=== PATIENT | female | born 1990 | race Caucasian/White ===

== ENCOUNTER 2025-02-18 09:45 | Outpatient (RCR) | payer OTHER, SELFPAY ==
[2025-01-30 11:21] VITALS: BMI 24.7
[2025-01-30 11:47] VITALS: BP 90/58; PULSE 68; TEMP 36.6
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
--- NOTE | 2025-01-30 15:35 | PC.ADMIT ---
Patient is a 34 year old female who was referred to [facility] by her therapist d/t increased sxs of depression, anxiety with panic attacks, and PTSD sxs. Patient identified stressors including work. 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 Patient also reports stresses including her children and their father and the state of her home. Patient reports history of tongue cancer with removal of a portion of her and radiation treatments. Reports chronic tongue pain as a result. Patient stated she vapes Marijuana occasionally for the pain. Reports low motivation to do things. She is currently taking a leave of absence from work to work on her mental health. Patient identified supports as being her partner, a couple of friends and mom. Patient is alert and oriented x4. She is calm and cooperative. She presented with depressed mood and affect. She denied SI. She was given a copy of her safety plan if needed. Medications updated with patient and patient's pharmacy. She reports taking medications as prescribed. Medication education provided.
--- NOTE | 2025-02-06 19:10 | HO.PHPPROGNO ---
Subjective Subjective Date of Service: 02/06/25 Reason For Visit: MDD,PTSD,ADHD Interim History: Patient seen for follow-up. Anxiety has been up and down She has been feeling under the weather with head cold symptoms, daughter currently is sick Mood is okay, energy lower. Denies any SI. SLeep, appetite intact. her back has been stiff achy, sitting for long periods not helping . Abilify 1 mg qd so far tolerated, agreeable to inrease to whole tablet. Medication Compliance: Yes Side effects from medications: No Attending Groups: Yes Review of Systems Acute medical concerns: No Mental Status Exam Mental Status Exam Narrative: Alert, oriented, in no acute distress. Calm, cooperative. Mood depressed, affect subdued. Speech normal. Thought process linear, coherent, more goal-directed. Thought content related to stressors, future-oriented, denies any helplessness, hopelessness or SI.? No aggressive ideation or HI. No paranoia or delusional content elicited. No evidence of psychosis. Insight and judgment fair-good. Diagnostics Vital Signs (24Hr): BMI result Body Mass Index 24.7 Assessment & Plan Assessment & Plan (1) MDD (major depressive disorder), recurrent severe, without psychosis: Status: Acute Code(s): F33.2 - Major depressive disorder, recurrent severe without psychotic features (2) PTSD (post-traumatic stress disorder): Status: Acute Code(s): F43.10 - Post-traumatic stress disorder, unspecified (3) KYLE (generalized anxiety disorder): Status: Acute Code(s): F41.1 - Generalized anxiety disorder (4) ADHD (attention deficit hyperactivity disorder): Status: Acute Code(s): F90.9 - Attention-deficit hyperactivity disorder, unspecified type Plan cotninue PHP increase Abilify to 2 mg qd continue regular medications? Refills sent to pharmacy Will defer further medication management to outpatient provider *Safety plan reviewed *Discharge diagnoses, treatment course, discharge plan have been reviewed with patient (including medication regime, medication management, potential side effects) as well as treatment rationale were also revisited *Discharge paperwork signed and given to patient, copy sent for scanning to chart Patient educated on: diagnosis and medication risk/benefits Informed Consent: understands Reason for contiued partial hosp. stay Substantial Risk for: med/psych decompensation Certification I certify that partial hospital treatment is medically necessary due to the symptoms and problems resulting from the patient's mental illness and the failure to treat the patient at the partial hospital level of care would likely result in the patient requiring inpatient psychiatric care which could not be prevented at a less intensive level of care. Total time managing care of this patient today __30__ minutes. Discharge Plan Discharge Attending provider: Jacinta Galindo Medications: New aripiprazole 2 mg tablet 2 mg PO BEDTIME Qty: 30 0RF Continued lamotrigine 200 mg tablet 200 mg PO DAILY omeprazole 40 mg capsule,delayed release(DR/EC) 40 mg PO DAILY levothyroxine 50 mcg Tablet 50 mcg PO DAILY Patient Comments: Patient reports this was increased from 25 to 50 mcg daily. buspirone 10 mg Tablet 10 mg PO BID fluoxetine 10 mg capsule 10 mg PO DAILY gabapentin 300 mg capsule 300 mg PO BEDTIME lorazepam 1 mg tablet 1 mg PO TID PRN (Reason: Anxiety) methylphenidate HCl [Concerta] 18 mg tablet extended release 24hr 18 mg PO QAM fluoxetine 20 mg capsule 60 mg PO DAILY Stand Alone Forms: Patient Portal Discharge page Patient Education: Depression (ED), Depression (DC), Anxiety (ED) Print Language: Romanian
--- NOTE | 2025-02-12 08:22 | PC.NURSE ---
Natalie called and spoke to Jena stating she was not feeling well and not sure if it is medication related or not thus made an appointment to see her PCP today. I called Natalie and left her a message to call me back to f/u. Awaiting call back.
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
--- NOTE | 2025-02-19 09:29 | HO.PHPPROGNO ---
Subjective Subjective Date of Service: 02/19/25 Reason For Visit: MDD,PTSD,ADHD Interim History: Patient seen for follow-up, anticipating discharge at the end of program today.? Been on 7 days of doxycycline for a sinus infection. Follows up with PCP next week. Reports no acute issues or concerns. Medication compliant, medications well-tolerated. Denies any adverse effects.? Mood is stable.? Denies any hopelessness or SI. Denies thoughts of harming self or others at this time. Denies any aggressive ideation or HI. Denies any paranoia or AH or VH. Sleep, appetite, energy stable. Medication Compliance: Yes Side effects from medications: No Attending Groups: Yes Review of Systems Acute medical concerns: No Mental Status Exam Mental Status Exam Narrative: Alert, oriented, in no acute distress. Calm, cooperative. Mood stable, affect appropriate. Speech normal. Thought process linear, coherent, more goal-directed. Thought content related to stressors, future-oriented, denies any helplessness, hopelessness or SI.? No aggressive ideation or HI. No paranoia or delusional content elicited. No evidence of psychosis. Insight and judgment fair-good. Diagnostics Vital Signs (24Hr): BMI result Body Mass Index 24.7 Assessment & Plan Assessment & Plan (1) MDD (major depressive disorder), recurrent severe, without psychosis: Status: Acute Code(s): F33.2 - Major depressive disorder, recurrent severe without psychotic features (2) PTSD (post-traumatic stress disorder): Status: Acute Code(s): F43.10 - Post-traumatic stress disorder, unspecified (3) KYLE (generalized anxiety disorder): Status: Acute Code(s): F41.1 - Generalized anxiety disorder (4) ADHD (attention deficit hyperactivity disorder): Status: Acute Code(s): F90.9 - Attention-deficit hyperactivity disorder, unspecified type Plan [facility]charge from [facility] Continue regular medications? Refills sent to pharmacy Will defer further medication management to outpatient provider *Safety plan reviewed *Discharge diagnoses, treatment course, discharge plan have been reviewed with patient (including medication regime, medication management, potential side effects) as well as treatment rationale were also revisited *Discharge paperwork signed and given to patient, copy sent for scanning to chart Patient educated on: diagnosis and medication risk/benefits Informed Consent: understands Reason for contiued partial hosp. stay Substantial Risk for: stable for discharge Certification I certify that partial hospital treatment is medically necessary due to the symptoms and problems resulting from the patient's mental illness and the failure to treat the patient at the partial hospital level of care would likely result in the patient requiring inpatient psychiatric care which could not be prevented at a less intensive level of care. Total time managing care of this patient today __30__ minutes. Discharge Plan Discharge Attending provider: Jacinta Galindo Medications: New aripiprazole 2 mg tablet 2 mg PO BEDTIME Qty: 30 0RF Continued lamotrigine 200 mg tablet 200 mg PO DAILY omeprazole 40 mg capsule,delayed release(DR/EC) 40 mg PO DAILY levothyroxine 50 mcg Tablet 50 mcg PO DAILY Patient Comments: Patient reports this was increased from 25 to 50 mcg daily. buspirone 10 mg Tablet 10 mg PO BID fluoxetine 10 mg capsule 10 mg PO DAILY gabapentin 300 mg capsule 300 mg PO BEDTIME lorazepam 1 mg tablet 1 mg PO TID PRN (Reason: Anxiety) methylphenidate HCl [Concerta] 18 mg tablet extended release 24hr 18 mg PO QAM fluoxetine 20 mg capsule 60 mg PO DAILY Stand Alone Forms: Patient Portal Discharge page Patient Education: Depression (ED), Depression (DC), Anxiety (ED) Print Language: Syriac
== END 2025-02-18 23:59 | disposition home or self-care (01) ==
LOC: HO.PHPA 09:45
PROVIDERS: Visit Provider Psychiatry & Neurology Psychiatry
DX: F33.2 Major depressive disorder, recurrent severe without psychotic features (principal); F43.10 Post-traumatic stress disorder, unspecified; F41.1 Generalized anxiety disorder; F90.9 Attention-deficit hyperactivity disorder, unspecified type; Z79.899 Other long term (current) drug therapy
CPT/HCPCS: 90791; 90853

== ENCOUNTER → 2025-02-18 09:45 | Outpatient (BNV) | payer OTHER, SELFPAY | PROVIDERS: Visit Provider Psychiatry & Neurology Psychiatry | DX: F33.2 Major depressive disorder, recurrent severe without psychotic features (principal); F43.10 Post-traumatic stress disorder, unspecified; F41.1 Generalized anxiety disorder; F90.9 Attention-deficit hyperactivity disorder, unspecified type | CPT/HCPCS: 99499 ==